=== PATIENT | female | born 1960 | race African-American/Black ===

== ENCOUNTER 2016-06-12 22:56 | Emergency (ER) | payer MEDICARE, OTHER ==
[~2016-06-12 22:56] MED LIST: ANTIVERT PO; ASPIRIN81 MG PO; CARAFATE1 GM PO; CETIRIZINE HCL10 MG PO; CYMBALTA PO; CYMBALTA30 MG PO; DULOXETINE HCL60 MG PO; ESOMEPRAZOLE MA40 MG PO; HYDROCHLOROTH12.5 MG PO; IBUPROFEN800 MG PO; KLONOPIN1 M1 PO; KLONOPIN1 MG PO; LINZESS145 MCG PO; LISINOPRIL PO; LISINOPRIL-HCTZ1 T14 PO; LISINOPRIL-HCTZ1 T20 PO; LISINOPRIL20 MG PO; LOPRESSOR PO; METOPROLOL SUCC50 MG PO; MONTELUKAST SOD10 MG PO; MOTION RELIEF25 MG PO; NORVASC PO; OMEPRAZOLE20 M1 PO; OXYCODONE HCL30 MG PO; PAXIL PO; PRILOSEC20 MG PO; PROTONIX PO; SENNA LAXATIVE8.6 M1 PO; TIZANIDINE HCL4 M1 PO; TOPROL XL 50 MG50 M1 PO; VITAMIN D50000 UNIT PO; ZANAFLEX2 M1 PO; ZOFRAN PO
== END 2016-06-12 23:48 | disposition home or self-care (01) ==
LOC: CED 22:56
DX: F41.1 Generalized anxiety disorder (principal); F17.200 Nicotine dependence, unspecified, uncomplicated
CPT/HCPCS: 99283

== ENCOUNTER 2016-10-04 20:22 | Emergency (ER) | payer MEDICARE, OTHER ==
--- NOTE | ~2016-10-04 | CT16 ---
[facility] A Service of [facility] RADIOLOGY TEXT RESULTS PATIENT: KEEGAN FRANKLIN LOCATION: [facility] : 56 UNIT #: [id number] AGE: [address]: Fany Suggs MD SEX: F ORDER DR: [id number] [facility]. [place], [place] [address] [id number] E MR#: [id number] #: [id number] NAME: KEEGAN FRANKLIN : 1960 SEX: F STUDY DATE/TIME: 10/04/2016 23:38 UNIT: [facility] ROOM: STUDY DESCRIPTION: CT Angio Chest for PE Attending Physician: Fany uSggs M.D. Ordering Physician: Fany Suggs M.D. Primary Care Physician: Chevy Sharma Jr., M.D. MEDICAL IMAGING REPORT This report is preliminary unless electronic signature is present EXAM CTA chest PE protocol. INDICATIONS Shortness of air and nonproductive cough for the past week. PROCEDURE Contrast-enhanced CTA of the chest attention on opacification of the pulmonary arteries. Coronal, 3-D MIP, sagittal and reformatted images reconstructed and submitted. This CT exam was performed with one or more of the following radiation dose reduction techniques: Automatic exposure control, adjustment of mA and/or kV according to patient size, and iterative reconstruction. COMPARISON 10/06/2015 FINDINGS No evidence for pulmonary embolus. No evidence for acute aortic injury. No acute findings in the included upper abdomen. No dense consolidation, pleural fluid or pneumothorax. No acute bone injury. IMPRESSION No acute findings in the chest. No evidence for pulmonary embolus. Dictated by... Luis Mehta M.D. THIS IS AN ELECTRONICALLY VERIFIED REPORT Luis Mehta M.D. at 10/10/2016 3:06 PM EED/bd [facility] A Service [facility] RADIOLOGY TEXT RESULTS PATIENT: KEEGAN FRANKLIN LOCATION: [facility] : 56 UNIT #: [id number] AGE: [address]: Fany Suggs MD SEX: F ORDER DR: TD: 10/05/2016 12:47 JOB #: [id number] MEDICAL IMAGING REPORT Page 1 of 1 COPY
--- NOTE | ~2016-10-04 | EKG ---
PATIENT: KEEGAN FRANKLIN UNIT #: [id number] Ventricular Rate: 79 BPM Atrial Rate: 79 BPM P-R Interval: 168 ms QRS Duration: 78 ms Q-T Interval: 368 ms QTC Calculation(Bezet): 421 ms P [place]: 25 degrees Calculated R [place]: -27 degrees Calculated T [place]: 43 degrees Diagnosis Line: Normal sinus rhythm Diagnosis Line: Normal ECG Diagnosis Line: No previous ECGs available Diagnosis Line: Confirmed by NARESH WEBER MD ([id number]) on 10/10/2016 Diagnosis Line: 2:27:30 PM INTERPRETING MD: TIA CHAVARRIA
--- NOTE | ~2016-10-04 | CR72 ---
[facility] A Service of [facility] RADIOLOGY TEXT RESULTS PATIENT: KEEGAN FRANKLIN LOCATION: [facility] : 56 UNIT #: [id number] AGE: [address]: Fany Suggs MD SEX: F ORDER DR: [id number] [facility] [address] [place], [place] [address] [id number] E MR#: [id number] #: [id number] NAME: KEEGAN FRANKLIN : 1960 SEX: F STUDY DATE/TIME: 10/04/2016 20:43 UNIT: [facility] ROOM: STUDY DESCRIPTION: CR Chest Single View Portable Attending Physician: Fany Suggs M.D. Ordering Physician: Fany Suggs M.D. Primary Care Physician: Chevy Sharma Jr., M.D. MEDICAL IMAGING REPORT This report is preliminary unless electronic signature is present EXAM Portable chest INDICATION Cough, shortness of breath for 2 weeks. COMPARISON 04/02/2016 FINDINGS Mild interstitial prominence. Heart size normal. Postop changes cervical spine. IMPRESSION Mild interstitial prominence; otherwise, unremarkable . Dictated by... Nate Tyler M.D. THIS IS AN ELECTRONICALLY VERIFIED REPORT Nate Tyler M.D. at 10/05/2016 7:45 PM KANDACE/ruba TD: 10/05/2016 11:20 JOB #: [id number] MEDICAL IMAGING REPORT Page 1 of 1 COPY
[2016-10-04 21:14] LABS: BASOPHIL# 0.1 X10e3 (0-0.3); BASOPHIL% 0.8 % (0-2.5); DIFF IND NO; EOSINOPHIL# 0.3 X10e3 (0-0.7); EOSINOPHIL% 2.3 % (0.0-7.0); HEMATOCRIT 45.9 % (35.0-45.0); HEMOGLOBIN 15.1 gm/dL (12.0-16.0); LYMPHOCYTE# 5.5 X10e3 (1.0-3.5); LYMPHOCYTE% 40.8 % (17.0-45.0); MEAN CELL VOLUME 91.4 FL (83-96); MEAN CORPUSCULAR HEMOGLOBIN 30.2 PG (28-34); MEAN PLATELET VOLUME 8.4 FL (6.5-11.5); MONOCYTE# 0.8 X10e3 (0-1.0); MONOCYTE% 6.2 % (3.0-12.0); NEUTROPHIL# 6.7 X10e3 (1.5-7.1); NEUTROPHIL% 49.9 % (40-75); PLATELET COUNT 273 X10e3 (140-420); RED BLOOD COUNT 5.02 X10e (3.90-5.30); RED CELL DISTRIBUTION WIDTH 13.9 % (11.0-15.5); WHITE BLOOD COUNT 13.5 X10e3 (4.0-10.5)
[2016-10-04 21:20] LABS: POC - CKMB <1.0 ng/mL (0.0-7.9); POC - TROPONIN <0.05 ng/mL (<=0.05)
[2016-10-04 21:25] LABS: INR 0.9; PROTHROMBIN TIME (PATIENT) 10.1 SECONDS (10.0-11.7)
[2016-10-04 21:40] LABS: ALBUMIN SERUM 4.2 g/dL (3.5-5.0); BILIRUBIN, DIRECT 0.1 mg/dL (0.0-0.2); BILIRUBIN,INDIRECT 0.6 mg/dL (0.0-0.9); BILIRUBIN,TOTAL 0.7 mg/dL (0.2-2.0); BUN/CREATININE RATIO 13.33; CALCIUM SERUM 9.1 mg/dL (8.4-10.2); CREATININE SERUM 0.9 mg/dL (0.6-1.4); GLOM FILT RATE Estimated 82.3 mL/min (>60); POTASSIUM 3.6 mmol/L (3.5-5.1); PROTEIN TOTAL SERUM 7.1 g/dL (6.0-8.3)
[2016-10-04 22:12] LABS: ARTERIAL BLD GAS O2 SATURATION 88.5 % (90.0-100.0); ARTERIAL BLOOD GAS CARBOXY HB 6.4 %sat (0.0-9.0); ARTERIAL BLOOD GAS HCO3 29.8 mmol/L; ARTERIAL BLOOD GAS MET HB 0.7 %sat (0.0-2.0); ARTERIAL BLOOD GAS PCO2 45.4 mmHg (35.0-45.0); ARTERIAL BLOOD GAS pH 7.425 (7.350-7.450)
[2016-10-04 22:17] LABS: ARTERIAL BLOOD GAS ALLEN TEST Y; ARTERIAL BLOOD GAS ART SITE LEFT RADIAL; ARTERIAL BLOOD GAS PO2 70.8 mmHg (80.0-100); ARTERIAL DRAW? YES
== END 2016-10-05 00:15 | disposition home or self-care (01) ==
LOC: CED 20:22
PROVIDERS: Student in an Organized Health Care Education/Training Program
DX: J20.9 Acute bronchitis, unspecified (principal); J44.9 Chronic obstructive pulmonary disease, unspecified; F17.200 Nicotine dependence, unspecified, uncomplicated
CPT/HCPCS: 36415; 36600; 71010; 71275; 80048; 80076; 82553; 82803; 83605; 83880; 84484; 85025; 85379; 85610; 85730; 87040; 93005; 94640; 96374; 96375; 99285; J2060; J2405; J2930; Q9967